=== PATIENT | female | born 1995 | race Caucasian/White ===

== ENCOUNTER → 2019-05-12 | Outpatient (CLI) | payer BC, OTHER ==
--- NOTE | 2019-05-12 08:39 | REP ---
Limited abdominal sonography: History: Subcutaneous lump in the epigastric area. Mass or lump in the midline after gallbladder removal . Findings: Scanning through the area of concern in the epigastric region above the level of the umbilicus is performed supine and standing. Normal subcutaneous and abdominal wall soft tissues are seen. No mass, cyst, hernia or abnormal fluid collection is seen. Impression: Normal limited abdominal wall sonography. Electronically Signed by Ryan Wright MD 05/12/2019 08:31 A
== END ==
LOC: M RAD 07:18
PROVIDERS: ATTEND Internal Medicine
DX: R19.06 Epigastric swelling, mass or lump (principal)